=== PATIENT | female | born 1985 | race Caucasian/White ===

== ENCOUNTER 2017-04-19 20:49 | Emergency (ER) | payer OTHER ==
[2017-04-19 22:07] LABS: BASOPHIL % 0.3 % (0-2); PLATELET COUNT 293 x10^3mcL (130-400)
[2017-04-19 22:10] LABS: RED CELL DISTRIBUTION WIDTH 21.4 % (11.5-14.5)
[2017-04-19 22:17] LABS: rbc morphology (normal/abnorm) ABNORMAL (NORMAL)
[2017-04-19 22:18] LABS: CARBON DIOXIDE 24.1 mmol/L (21-32); CHLORIDE SERUM 104 mmol/L (98-107); GFR1 > 60 mL/min; GLUCOSE SERUM 107 mg/dL (74-106); POTASSIUM SERUM 4.2 mmol/L (3.5-5.1); SODIUM SERUM 139 mmol/L (136-145)
[2017-04-19 22:23] LABS: ALBUMIN 3.1 g/dL (3.4-5.0); ALKALINE PHOSPHATASE 88 U/L (46-116); ALT/SGPT 133 U/L (14-59); AST/SGOT 70 U/L (15-37); BILIRUBIN TOTAL 0.16 mg/dL (0.20-1.00); TOTAL PROTEIN, SERUM 7.1 g/dL (6.4-8.2)
[2017-04-20 00:45] VITALS: BP 117/66
== END 2017-04-20 00:45 | disposition home or self-care (01) ==
LOC: ED 20:49
PROVIDERS: Emergency Medicine
DX: N92.1 Excessive and frequent menstruation with irregular cycle (principal); D50.9 Iron deficiency anemia, unspecified; Z79.899 Other long term (current) drug therapy
CPT/HCPCS: 83880; J1885; J7030; J7040

== ENCOUNTER 2017-06-11 22:58 | Emergency (ER) | payer MEDICAID ==
[2017-06-11 23:42] LABS: BASOPHIL % 0.5 % (0-2); PLATELET COUNT 334 x10^3mcL (130-400)
[2017-06-11 23:46] LABS: CALCIUM 9.2 mg/dL (8.5-10.1); CARBON DIOXIDE 24.9 mmol/L (21-32); CHLORIDE SERUM 103 mmol/L (98-107); GFR1 > 60 mL/min; GLUCOSE SERUM 138 mg/dL (74-106); POTASSIUM SERUM 3.7 mmol/L (3.5-5.1); SODIUM SERUM 140 mmol/L (136-145)
[2017-06-11 23:51] LABS: ALBUMIN 3.5 g/dL (3.4-5.0); ALKALINE PHOSPHATASE 100 U/L (46-116); ALT/SGPT 164 U/L (14-59); AMYLASE 93 U/L (25-115); AST/SGOT 87 U/L (15-37); BILIRUBIN TOTAL 0.2 mg/dL (0.20-1.00); LIPASE 143 IU/L (73-393); TOTAL PROTEIN, SERUM 8.4 g/dL (6.4-8.2)
[2017-06-11 23:52] LABS: RED CELL DISTRIBUTION WIDTH 23.2 % (11.5-14.5)
[2017-06-12] LABS: ovalocyte/elliptocyte 1+; target cell (codocyte) 1+
[2017-06-12 00:01] LABS: rbc morphology (normal/abnorm) ABNORMAL (NORMAL)
[2017-06-12 01:14] VITALS: BP 140/84
== END 2017-06-12 01:14 | disposition home or self-care (01) ==
LOC: ED 22:58
PROVIDERS: Emergency Medicine
DX: R10.13 Epigastric pain (principal)
CPT/HCPCS: 83880; C9113; J2270; J2405; Q0092

== ENCOUNTER 2017-11-07 11:00 | Emergency (ER) | payer SELFPAY ==
[~2017-11-07] VITALS: Ht 157.5 cm; Wt 100.2 kg
[2017-11-07 11:22] VITALS: BP 128/72; Ht 157.5 cm; Wt 100.2 kg
== END 2017-11-07 12:59 | disposition home or self-care (01) ==
LOC: ED 11:00
DX: J06.9 Acute upper respiratory infection, unspecified (principal); H66.90 Otitis media, unspecified, unspecified ear; J01.90 Acute sinusitis, unspecified

== ENCOUNTER 2019-05-18 04:36 | Emergency (ER) | payer MEDICAID ==
[~2019-05-18] VITALS: Ht 157.5 cm; Wt 105.2 kg
[2019-05-18 04:40] VITALS: Ht 157.5 cm; Wt 105.2 kg
[2019-05-18 05:31] LABS: BASOPHIL % 0.1 % (0-2); PLATELET COUNT 291 x10^3mcL (130-400)
[2019-05-18 05:42] LABS: RED CELL DISTRIBUTION WIDTH 22.1 % (11.5-14.5)
[2019-05-18 05:48] LABS: CALCIUM 8.2 mg/dL (8.5-10.1); CHLORIDE SERUM 105 mmol/L (98-107); GFR1 > 60 mL/min; GLUCOSE SERUM 117 mg/dL (74-106); POTASSIUM SERUM 4.3 mmol/L (3.5-5.1); SODIUM SERUM 142 mmol/L (136-145)
[2019-05-18 05:49] LABS: ovalocyte/elliptocyte 1+; rbc morphology (normal/abnorm) ABNORMAL (NORMAL); target cell (codocyte) 1+
[2019-05-18 05:53] LABS: ALBUMIN 3.5 g/dL (3.4-5.0); ALKALINE PHOSPHATASE 93 U/L (46-116); ALT/SGPT 54 U/L (14-59); AMYLASE 97 U/L (25-115); AST/SGOT 30 U/L (15-37); BILIRUBIN TOTAL 0.41 mg/dL (0.20-1.00); LIPASE 81 IU/L (73-393); TOTAL PROTEIN, SERUM 7.8 g/dL (6.4-8.2)
[2019-05-18 06:41] VITALS: BP 125/71
== END 2019-05-18 06:41 | disposition home or self-care (01) ==
LOC: ED 04:36
PROVIDERS: Emergency Medicine
DX: A08.4 Viral intestinal infection, unspecified (principal)
CPT/HCPCS: C9113; J2405; J2765; J7030